=== PATIENT | male | born 1945 | race Caucasian/White ===

== ENCOUNTER → 2017-02-12 | Outpatient (CLI) | payer OTHER | LOC: BHLMT 09:30 | PROVIDERS: ATTEND Internal Medicine Cardiovascular Disease | DX: I10 Essential (primary) hypertension (principal); E78.00 Pure hypercholesterolemia, unspecified; E78.4 Other hyperlipidemia; N18.9 Chronic kidney disease, unspecified | CPT/HCPCS: 93005-PO ==

== ENCOUNTER → 2018-02-28 | Outpatient (CLI) | payer OTHER | LOC: BHLMT 10:30 | PROVIDERS: ATTEND Internal Medicine Cardiovascular Disease | DX: I10 Essential (primary) hypertension (principal); E78.00 Pure hypercholesterolemia, unspecified; N18.9 Chronic kidney disease, unspecified | CPT/HCPCS: 93005-PO ==